=== PATIENT | female | born 1975 | race Caucasian/White ===

== ENCOUNTER 2016-07-11 17:44 | Emergency (ER) | payer MEDICAID ==
[~2016-07-11 17:44] MED LIST: IBUP-238 PO; PREN0.01 PO
[2016-07-11 19:03] LABS: BACTERIA, URINE RARE /hpf; BLOOD, URINE MOD (NEG); COMMENT (UR) CULTURE INDICATED; CULTURE IF INDICATED CULTURE INDICATED; GLUCOSE,URINE 300 mg/dL (NEG); KETONE, URINE NEG (NEG); MUCUS URINE FEW /lpf (OCC); NITRITE,URINE NEG (NEG); SQUAMOUS EPITHELIAL CELL URINE 9 /hpf (0-5); URINE COLOR YELLOW (YELLW/STRAW)
[2016-07-11 19:14] VITALS: RESP 18
[2016-07-11] MEDS ORDERED: MACR100C2 PO (19:19)
--- NOTE | 2016-07-11 19:19 | PD ---
HPI Chief Complaint Abdominal pain Date Seen: Jul 11, 2016 Travel History International Travel<30 Days: No Contact w/Intl Traveler<30Days: No Known Affected Area: No History of Present Illness HPI This patient is a 3-year-old 37 weeks from [facility] followed Dr. Peterson for care she presents complaining of abdominal pain began earlier today. She denies bleeding or rupture the membranes baby is active her heart rate tracing is reactive and she is jerri initially regularly but now about every 3-4 minutes. Para: 2 : 3 History Obstetric History Obstetric History 2 vaginal deliveries Social History Alcohol Use: No Tobacco Use: No Substance Abuse: No Allergies-Medications (Allergen,Severity, Reaction): Coded Allergies: No Known Allergies (Unverified , 09/07/12) Home Meds Reported Medications Ibuprofen (Motrin)800 Mg [id number] Mg PO Q8HPRN #30 09/09/12 Multivit/Min/Fol Ac/Iron/Pren ( Vit ( Plus)) Tab1 Tab PO DAILY 09/07/12 Review of Systems General / Constitutional: No: Fever, Weight Gain, Chills, Other Eyes: No: Diploplia, Blurred Vision, Visual changes, Pain, Photophobia HENT: No: Headaches, Vertigo, Lightheadedness Cardiovascular: No: Irregular Rhythm, Chest Pain or Discomfort, Palpitations, Tachycardia, Syncope, Varicosities, Edema, Cyanosis Respiratory: No: Cough, Short of Breath, Other Gastrointestinal: No: Nausea, Vomiting, Diarrhea Genitourinary: No: Decreased Urinary Output, Oliguria Musculoskeletal: No: Limited ROM, Weakness, Cramping, Edema, Pain Skin: No Rash, No Itching, No Dryness, No Lumps, No Change in Pigmentation, No Change in Nails, No Alopecia, No Lesions Neurologic: No: Weakness, Dizziness, Syncope, Focal Abnormalities, Coordination Problem, Headache, Slurred Speech, Seizures Psychiatric: No: Depression, Suicidal Ideations, Homicidal Ideation Endocrine: No: Heat Intolerance, Cold Intolerance, Polydipsia, Polyuria, Other Physical Exam Narrative GENERAL: Well-nourished, well-developed patient. SKIN: Warm and dry. HEAD: Normocephalic and atraumatic. EYES: No scleral icterus. No injection or drainage. ENT: No nasal drainage noted. Mucous membranes pink. Airway patent. NECK: Supple, trachea midline. No JVD. CARDIOVASCULAR: Regular rate and rhythm without murmurs, gallops, or rubs. RESPIRATORY: Breath sounds equal bilaterally. No accessory muscle use. BREASTS: Bilateral exam showed no masses , no retractions, no nipple discharge. ABDOMEN/GI: Abdomen soft, non-tender, bowel sounds present, no rebound, no guarding Gravid to [36-] weeks size Fundal Height: 36-] GENITOURINARY: External Genitalia: intact and normal in appearance BUS glands: [-] Cervix: [-] Was checked twice and the one hour between checks is no change in the cervix of the those exams both time cervix was 3-4 thick and high very posterior and vertex Effacement: [-] Thick Station: [-3] posterior Presentation: [-vtx] Membranes: [intact ] Uterine Contractions: [Tractions are every 3-5 minutes and are uncomfortable but not very painful-] FHT's: Category: [1-] Baseline: [-144] Reactive: [-yes] Variability: [mod-] Decels: [-none] EXTREMITIES: No cyanosis or edema. BACK: Nontender without obvious deformity. No CVA tenderness. NEUROLOGICAL: Awake and alert. Motor and sensory grossly within normal limits. Five out of 5 muscle strength in all muscle groups. Normal speech. Data Data Orders Vital Signs (Adult) .ON ADMISSION (07/11/16 18:20) ^ Labor Status (07/11/16 18:20) Urinalysis - C+S If Indicated (07/11/16 18:20) Diet Liquid (07/11/16 Dinner) Urine Culture (07/11/16 18:10) Labs Fingerstick blood sugar was 98 Laboratory Tests Test 07/11/16 18:10 Urine Color YELLOW Urine Turbidity HAZY Urine pH 6.0 Urine Specific [place] 1.011 Urine Protein TRACE Urine Glucose (UA) 300 Urine Ketones NEG Urine Occult Blood MOD Urine Nitrite NEG Urine Bilirubin NEG Urine Urobilinogen LESS THAN 2.0 Urine Leukocyte Esterase LARGE Urine RBC Urine WBC 36 Urine Squamous Epithelial 9 Cells Urine Bacteria RARE Urine Mucus FEW Microscopic Urinalysis Comment CULTURE INDICATED Date/Time Procedure Status Source Growth 07/11/16 18:10 Urine Culture Received Urine Clean Catch Pending [facility] Medical Record Reviewed: No Interpretation(s) This patient is a 40-year-old white female [address] Peterson for care who presents complaining of abdominal pain. He has no bleeding or rupture the membranes baby is active her heart rate tracing is reactive and she is jerri every 3-5 minutes that are uncomfortable but not very painful., she was checked twice an hour between the checks and the cervix was had no change it was 3-4 thick and very posterior Plan At this patient to be discharged home she is in false labor at this time no documented cervical change she is encouraged to use Tylenol liberally oral fluids to hydrate. Her urinalysis was enough sign of infection to give her round of Macrobid which we will do and the urine was For culture and obviously is pending she does still quite a bit of glucose in her urine but her blood fingerstick was 98. She'll follow-up Dr. Peterson as scheduled or return here sooner for increasing pain problems etc. Diagnosis Diagnosis: Primary Impression: False labor at or after 37 completed weeks of gestation Additional Impression: UTI (urinary tract infection) in in third trimester Disposition: 01 DISCHARGE HOME Condition: Stable Scripts Nitrofurantoin Monohydrate Macrocrystals (Macrobid)100 Mg Cdo700 Mg PO BID #14 CAP Ref 0 Prov:Eddie Lynch II, MD 07/11/16 Eddie Lycnh II, MD Jul 11, 2016 19:19
== END 2016-07-11 19:27 | disposition home or self-care (01) ==
LOC: HOBED 17:44
DX: O47.1 False labor at or after 37 completed weeks of gestation (principal); O23.43 Unspecified infection of urinary tract in pregnancy, third trimester; Z3A.37 37 weeks gestation of pregnancy
CPT/HCPCS: 59025; 81001; 87086

== ENCOUNTER 2016-08-01 07:53 | Inpatient (IN) | payer MEDICAID ==
[2016-08-01] VITALS (13 sets, daily range): BP systolic 101–140; BP diastolic 49–95; PULSE 65–84; RESP 18; TEMP 97.8–98.1
[~2016-08-01 07:53] MED LIST changes: +MACR100C2 PO
--- NOTE | 2016-08-01 08:55 | MH ---
cc: JEANINE ESQUEDA MD DATE OF ADMISSION 08/01/2016 REASON FOR ADMISSION Induction of labor. HISTORY This is a 40-year-old 3, para 2 intrauterine at 40 weeks history with a history of large for gestational age babies. She is 3-4 cm dilated. care has been with [facility] and the [facility]. Her group B strep is negative. Her gestational diabetes was negative. OBSTETRICAL HISTORY She has had two vaginal deliveries. GYNECOLOGIC HISTORY Unremarkable. She had a normal Pap smear in January 2016. PAST MEDICAL HISTORY She denies hypertension, diabetes or asthma. PAST SURGICAL HISTORY She denies. SOCIAL HISTORY She denies toxic habits. MEDICATIONS She takes Vitamins. ALLERGIES She has no known drug allergies. PHYSICAL EXAM On physical exam, her vital signs are stable. She is afebrile. Blood pressure is 118/66. She is 201 pounds. HEAD, HEART, CHEST AND LUNG: Exams are within normal limits. ABDOMEN: Soft, nontender, gravid. She is 3-4 cm dilated, 50% effaced, vertex presentation. ASSESSMENT/PLAN She is a 40-year-old 3, para 2 intrauterine at 40 weeks. She has been counseled as to the risks, benefits, alternatives of artificial rupture of membranes followed by Pitocin augmentation as needed. Her group B strep is negative. All of her questions have been answered. MD BRADLEY Black/CHAYA /1:13 PM /8:49 AM
[2016-08-01] MEDS ORDERED: LACTATED RINGER'S 1000 ML INJ 1,000 ML IV SCH (08:56)
[2016-08-01] MEDS ORDERED: LACTATED RINGER'S 1000 ML INJ 1,000 ML IV PRN (08:56)
--- NOTE | 2016-08-01 08:56 | PD.OB.ANTE ---
Subjective Diagnosis: (1) Objective Physical Exam GENERAL: Well-nourished, well-developed patient. CARDIOVASCULAR: Regular rate and rhythm without murmurs, gallops, or rubs. RESPIRATORY: Breath sounds equal bilaterally. No accessory muscle use. ABDOMEN/GI: Abdomen soft, non-tender. Fundus: [-] GENITOURINARY: External Genitalia: intact and normal in appearance Cervix: [-] Dilatation: [-]2 arom clear Effacement: [-]70 Station: [-]-1 Presentation: [-]vtx Membranes: [-] Uterine Contractions: [-] irreg FHT's: Category: [-]1 Baseline: [-] Reactive: [-]R Variability: [-] Decels: [-] EXTREMITIES: No cyanosis or edema, non-tender, without signs of DVT. Assessment and Plan Problem List: (1) Status: Acute Assessment and Plan IUP at term, multip, favorable cervix, AROM clear, GBS neg pit aug, analgesia prn, anticipate Komal Peterson MD Aug 01, 2016 08:56
[2016-08-01] MEDS ORDERED: SODIUM CHLORID 0.9% 500 ML INJ 500 ML IV PRN (09:00)
[2016-08-01] MEDS ORDERED: CITRIC ACID-SODIUM CITRATE LIQ 30 ML UDC PO SCH (09:00)
[2016-08-01] MEDS ORDERED: LIDOCAINE HCL 1% 50 ML VIAL I-DERMAL PRN (09:00)
[2016-08-01] MEDS ORDERED: OXYTOCIN 30 UNITS-500ML PREMIX 500 ML IV SCH (09:00)
[2016-08-01] MEDS ORDERED: MINERAL OIL 10 ML VIAL TOPICAL PRN (09:00)
[2016-08-01] MEDS ORDERED: LIDOCAINE HCL 1% 50 ML VIAL INFIL PRN (09:00)
[2016-08-01] MEDS ORDERED: ONDANSETRON HCL 4 MG/2 ML VIAL IV PRN (09:00)
[2016-08-01] MEDS ORDERED: OXYTOCIN 30 UNITS-500ML PREMIX 500 ML IV ONE (09:00)
[2016-08-01] MEDS ORDERED: SODIUM CHLOR 0.9% 1000 ML INJ 1,000 ML IV PRN (09:16)
[2016-08-01 09:17] LABS: AUTOMATED NEUTROPHIL # 6.7 TH/MM3 (1.8-7.7); BASOPHIL % 0.3 % (0.0-2.0); EOSINOPHIL # 0.1 TH/MM3 (0-0.4); EOSINOPHIL % 1.2 % (0.0-4.0); HEMO FLAGS DIFF FINAL; LYMPH % 18.7 % (9.0-44.0); LYMPHOCYTE # 1.8 TH/MM3 (1.0-4.8); MEAN CELL VOLUME 84.8 FL (80.0-100.0); MEAN CORPUSCULAR HEMOGLOBIN 28.1 PG (27.0-34.0); MEAN CORPUSCULAR HGB CONC 33.1 % (32.0-36.0); MONO % 8.4 % (0.0-8.0); NEUT % 71.4 % (16.0-70.0); PLATELET COUNT 189 TH/MM3 (150-450); RED BLOOD COUNT 3.89 MIL/MM3 (4.00-5.30); RED CELL DISTRIBUTION WIDTH 15.6 % (11.6-17.2); WHITE BLOOD COUNT 9.4 TH/MM3 (4.0-11.0)
[2016-08-01] MEDS ORDERED: fentaNYL 2MCG-BUPIV 0.125% INJ 100 ML ONE (10:00)
--- NOTE | 2016-08-01 10:57 | PD.OB.DELI ---
Anesthesia: Epidural Episiotomy: None Vaginal Delivery: Normal Presentation: Occiput anterior Nuchal Cord: None Delayed cord clamping (45 sec): Yes Infant: Male One Minute : 9 Five Minute : 9 Weight: 8 Care: Suctioned, Spontaneous crying Placenta: Manual removal, Intact, Uterus explored +, 3 vessel cord Laceration: 1 deg Repair: Chromic interrupted (average EBL) Celestina Veloz MD Aug 01, 2016 10:57
[2016-08-01] MEDS ORDERED: DOCUSATE SODIUM 50 MG/SENNA 8.6 MG TAB PO PRN (11:00)
[2016-08-01] MEDS ORDERED: ZOLPIDEM TARTRATE 5 MG TAB PO PRN (11:00)
[2016-08-01] MEDS ORDERED: WITCH HAZEL 50%/GLYCERIN 12.5% 40 PAD JAR TOPICAL PRN (11:00)
[2016-08-01] MEDS ORDERED: SODIUM CHLORIDE 0.9% FLUSH 5 ML FLUSH IV PRN (11:00)
[2016-08-01] MEDS ORDERED: ONDANSETRON ODT 4 MG TAB PO PRN (11:00)
[2016-08-01] MEDS ORDERED: ACETAMINOPHEN 325 MG TAB PO PRN (11:00)
[2016-08-01] MEDS ORDERED: BENZOCAINE 20% TOPICAL SPRAY 60 ML CAN TOPICAL PRN (11:00)
[2016-08-01] MEDS ORDERED: ALUMINUM/MAGNESIUM/SIMETH 30 ML CUP PO PRN (11:00)
[2016-08-01] MEDS ORDERED: oxyCODONE/ACETAMINOPHEN 5 MG/325 MG TAB PO PRN ×2 (11:00)
[2016-08-01 11:58] LABS: BACTERIA, URINE OCC /hpf; BLOOD, URINE MOD (NEG); COMMENT (UR) CULT NOT INDICATED; CULTURE IF INDICATED CULT NOT INDICATED; GLUCOSE,URINE 70 mg/dL (NEG); KETONE, URINE NEG (NEG); MUCUS URINE FEW /lpf (OCC); NITRITE,URINE NEG (NEG); SQUAMOUS EPITHELIAL CELL URINE 1 /hpf (0-5); URINE COLOR YELLOW (YELLW/STRAW)
[2016-08-01] MEDS ORDERED: DIPHTH/TETANUS/ACEL PERTUSSIS (BOOSTER) 0.5 ML VIAL/PFS IM ONE (16:00)
[2016-08-01] MEDS ORDERED: MEASLES, MUMPS, RUBELLA VACCINE 0.5 ML VIAL SQ ONE (16:00)
[2016-08-01] MEDS: IBUPROFEN 600 MG TAB PO PRN (16:55)
[2016-08-01] MEDS ORDERED: SODIUM CHLORIDE 0.9% FLUSH 5 ML FLUSH IV SCH (21:00)
[2016-08-02] MEDS: IBUPROFEN 600 MG TAB PO PRN ×4 (00:06→21:55)
--- NOTE | 2016-08-02 07:38 | HHI.OB ---
Subjective Post Day: 1 Remarks no complications Objective Vitals/I&O Vital Signs Date Time Temp Pulse Resp B/P Pulse Ox O2 Delivery O2 Flow Rate FiO2 08/01/16 19:35 98.1 75 18 101/53 08/01/16 12:55 98.0 65 18 126/60 08/01/16 11:45 76 129/59 08/01/16 11:30 80 120/52 08/01/16 11:15 79 118/50 08/01/16 11:00 83 122/49 08/01/16 10:55 18 08/01/16 10:30 84 129/76 08/01/16 10:30 76 08/01/16 10:00 83 140/95 08/01/16 09:45 97.8 18 08/01/16 09:30 79 131/65 08/01/16 09:00 75 136/66 08/01/16 08:58 84 130/73 Objective Remarks GENERAL: Well-nourished, well-developed patient. CARDIOVASCULAR: Regular rate and rhythm without murmurs, gallops, or rubs. RESPIRATORY: Breath sounds equal bilaterally. No accessory muscle use. ABDOMEN/GI: Abdomen soft, non-tender. Fundus: Firm, non-tender at umbilicus. GENITOURINARY: Light to moderate bleeding. EXTREMITIES: No cyanosis or edema, non-tender, without signs of DVT. Medications and IVs Current Medications Medications (Trade) Dose Ordered Sig/Fermin Route Start Time Stop Time Status Last Admin Lactated Ringer's 1,000 ml @ 125 mls/hr Q8H IV 08/01/16 08:56 08/01/16 10:09 Lactated Ringer's 1,000 ml @ 3,000 mls/hr Q20M PRN IV 08/01/16 08:56 Sodium Chloride 500 ml @ 1,000 mls/hr ONCE PRN IV 08/01/16 09:00 08/02/16 08:59 (NS 1000 ml Inj) 1,000 ml @ 100 mls/hr Q10H PRN IV 08/01/16 09:16 (Zofran Inj) 4 mg Q6H PRN IV 08/01/16 09:00 Mineral Oil 10 ml 10 ml UNSCH PRN TOPICAL 08/01/16 09:00 (Pitocin 30 Units-NS 500 ml Premix) 500 ml @ 0 mls/hr TITRATE IV 08/01/16 09:00 08/01/16 10:08 (NS Flush) 2 ml BID IV 08/01/16 21:00 (NS Flush) 2 ml UNSCH PRN IV 08/01/16 11:00 (Tylenol) 650 mg Q4H PRN PO 08/01/16 11:00 (Motrin) 600 mg Q6H PRN PO 08/01/16 11:00 08/02/16 00:06 (Percocet 5-325 Mg) 1 tab Q4H PRN PO 08/01/16 11:00 (Percocet 5-325 Mg) 2 tab Q4H PRN PO 08/01/16 11:00 (Americaine 20% Top Spr) 1 spray Q4H PRN TOPICAL 08/01/16 11:00 (Tucks Pads) 1 applic QID PRN TOPICAL 08/01/16 11:00 (Анна-Colace) 2 tab Q12H PRN PO 08/01/16 11:00 (Ambien) 5 mg HS PRN PO 08/01/16 11:00 (Mag-Al Plus Susp Liq) 15 ml Q8H PRN PO 08/01/16 11:00 (Zofran Odt) 4 mg Q6H PRN PO 08/01/16 11:00 Assessment/Plan Problem List: (1) Assessment and Plan PPD 1 - cont routine care d/c today if infant ready Adrienne Fitzpatrick MD Aug 02, 2016 07:38
--- NOTE | 2016-08-02 07:43 | HHI.DCPOC ---
Discharge Care Plan Diagnosis: (1) (spontaneous vaginal delivery) Your Health Problems Are: Vaginal delivery Report Symptoms to Your Doctor -Temperate above 100.5 degrees -Redness, of incision or excessive or foul smelling drainage -Unusual pain or calf pain -Increased vaginal bleeding -Painful or difficulty urinating -Feelings of extreme sadness or anxiety after 2 weeks Goals to Promote Your Health * To prevent worsening of your condition and complications * To maintain your health at the optimal level Directions to Meet Your Goals Take your medications as prescribed Follow your dietary instruction Follow activity as directed Ensure plenty of rest for recovery Drink fluids for hydration Keep your appointments as scheduled Take your immunizations and boosters as scheduled If your symptoms worsen call your PCP, if no PCP go to Urgent Care Center or Emergency Room Smoking is Dangerous to Your Health. Avoid second hand smoke Call the 24-hour crisis hotline for domestic abuse at Adrienne Fitzpatrick MD Aug 02, 2016 07:43
[2016-08-02 08:15] VITALS: BP 102/48; PULSE 61; RESP 16; TEMP 97.9
[2016-08-02 16:00] VITALS: BP 107/66; PULSE 65; RESP 18; TEMP 97.9
[2016-08-02 19:50] VITALS: BP 111/52; PULSE 67; RESP 18; TEMP 97.9
== END 2016-08-03 10:55 | disposition home or self-care (01) | DRG 775 ==
LOC: H2EA 07:53 → H1EA 12:15
PROVIDERS: ADMIT Obstetrics & Gynecology; ATTEND Obstetrics & Gynecology
PROC: 10E0XZZ Delivery of Products of Conception, External Approach (ICD-10-PCS; principal; 2016-08-01)
PROC: 0HQ9XZZ Repair Perineum Skin, External Approach (ICD-10-PCS; 2016-08-01)
PROC: 10907ZC Drainage of Amniotic Fluid, Therapeutic from Products of Conception, Via Natural or Artificial Opening (ICD-10-PCS; 2016-08-01)
PROC: 00HU33Z Insertion of Infusion Device into Spinal Canal, Percutaneous Approach (ICD-10-PCS; 2016-08-01)
PROC: 3E0R3CZ (ICD-10-PCS; 2016-08-01)
DX: O70.0 First degree perineal laceration during delivery (principal); Z3A.40 40 weeks gestation of pregnancy; Z37.0 Single live birth
CPT/HCPCS: 59025; 81001; 85025; 86900; 86901; J2590; J3010; J7120